=== PATIENT | female | born 1990 | race Caucasian/White ===

== ENCOUNTER 2018-07-26 01:55 | Emergency (ER) | payer OTHER ==
[~2018-07-26] VITALS: Ht 165.1 cm; Wt 49.9 kg
--- OUTSIDE RECORDS SUMMARY | ~2018-07-26 | XMS | Clinical Summary ---
Demographics + + + | Address | [address] | | | [place] [address] | + + + | Home Phone | | + + + | Preferred Language | Unknown | + + + | Marital Status | Single | + + + | Baptist Affiliation | Unknown | + + + | Race | Unknown | + + + | Ethnic Group | Unknown | + + + Author + + + | Author | [facility] | | | and [place] | + + + | Organization | [facility] | | | and [place] | + + + | Address | Unknown | + + + | Phone | Unavailable | + + + Support + + +---------+ + | Name | Relationship | Address | Phone | + + +---------+ + | Epifanio Lara | ECON | Unknown | | + + +---------+ + | AllisonRavindra | ECON | Unknown | | + + +---------+ + Care Team Providers + +------+ + | Care Aluminum Siding Mechanic Name | Role | Phone | + +------+ + | Eulalia Valdivia | PP | | | Ynes WELLS | | | + +------+ + Allergies No Known Allergies Current Medications + + +-------+---------+------+------+-------+ | Prescription | Sig. | Disp. | Refills | Star | End | Statu | | | | | | t | Date | s | | | | | | Date | | | + + +-------+---------+------+------+-------+ | | Take 1 tablet by | | | | | Activ | | HYDROcodone-acetamin | mouth every 6 hours | | | | | e | | ophen (NORCO) | as needed for Pain. | | | | | | | 7.5-325 mg per | | | | | | | | tablet | | | | | | | + + +-------+---------+------+------+-------+ Active Problems Not on file Family History + + +------+ + | Medical History | Relation | Name | Comments | + + +------+ + | Arthritis | Other | | Family history | + + +------+ + | Hypertension | Other | | Family history | + + +------+ + + +------+--------+ + | Relation | Name | Status | Comments | + +------+--------+ + | Other | | | | + +------+--------+ + Social History + + + +--------+------+ | Tobacco Use | Types | Packs/Day | Years | Date | | | | | Used | | + + + +--------+------+ | Current Every Day | Cigarettes | 0.05 | | | | Smoker | | | | | + + + +--------+------+ + +---+---+---+ | Smokeless Tobacco: | | | | | Never Used | | | | + +---+---+---+ + + +---------+ + | Alcohol Use | Drinks/We | oz/Week | Comments | | | ek | | | + + +---------+ + | No | 0 | 0.0 | | | | Standard | | | | | drinks or | | | | | | | | | | equivalen | | | | | t | | | + + +---------+ + + + + | Sex Assigned at | Date Recorded | | | | + + + | Not on file | | + + + Plan of Treatment + + + + + | Health Maintenance | Due Date | Last Done | Comments | + + + + + | Vaccine: HPV (1 of 3 | | | | | - Female 3-dose | 2 | | | | series) | | | | + + + + + | Vaccine: | | | | | Dtap/Tdap/Td (1 - | 0 | | | | Tdap) | | | | + + + + + | Vaccine: | | | | | Pneumococcal 19-64 | 0 | | | | (PPSV23 only) Medium | | | | | Risk (1 of 1 - | | | | | PPSV23) | | | | + + + + + | Cervical Cancer | | | | | Screening (Pap) | 2 | | | + + + + + | Vaccine: Influenza | | | | | (#1) | 8 | | | + + + + + Results Not on filefrom Last 3 Months Insurance + +--------+ +--------+ +---------+ | Payer | Benefi | Subscriber | Type | Phone | Address | | | t Plan | ID | | | | | | / | | | | | | | Group | | | | | + +--------+ +--------+ +---------+ | [employer] | [employer] | [id number] | [employer] | [phone] | | MEDICAID HMO | HEALTH | | id | [id number] | | | | [place] | | | | | | | [place] | | | | | + +--------+ +--------+ +---------+ + +--------+ +--------+ + + | Guarantor Name | Accoun | Relation to | Date | Phone | Billing Address | | | t Type | Patient | of | | | | | | | | | | + +--------+ +--------+ + + | YOLIS WHELAN | Person | Self | [birth year] Home: | [address]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
--- OUTSIDE RECORDS SUMMARY | ~2018-07-26 | XMS | Clinical Summary ---
Demographics + + + | Address | [address] | | | [place] [address] | + + + | Home Phone | | + + + | Preferred Language | Unknown | + + + | Marital Status | Single | + + + | Anabaptist Affiliation | Unknown | + + + | Race | Unknown | + + + | Ethnic Group | Unknown | + + + Author + + + | Author | [facility] | | | and [place] | + + + | Organization | [facility] | | | [...] Team Providers + +------+ + | Care Estate And Trust Tax Principal Name | Role | Phone | + [...] | [employer] | MOD[employer] | [id number] | [employer] | [phone] | | MEDICAID HMO | HEALTH [...] [birth year] | Home: | [address]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
[~2018-07-26 01:55] MED LIST: EXCEDRIN EXTRA1 EAC1 PO; FIORINAL-COD 31 EACH PO; ZOFRAN ODT4 MG PO
--- OUTSIDE RECORDS SUMMARY | 2018-07-26 02:00 | XMS ---
PreManage Notification: YOLIS WHELAN Security Events No recent Security Events currently on file CRITERIA MET - [facility] - 2 Visits in 30 Days CARE PROVIDERS АННА VALDIVIA Student in an Organized Health Care 07/25/2018-Current [facility] Education/Training Program PHONE: [phone] Анна Valdivia Treatment [facility] PHONE: Unknown Ana has no Care Guidelines for this patient. EJesus VISIT COUNT (12 MO.) [address] [place] [address] TOTAL 3 NOTE: Visits indicate total known visits. ED/UCC VISIT TRACKING (12 MO.) 07/26/2018 01:55 [facility] TYPE: Emergency COMPLAINT: - HEADACHE 07/24/2018 06:51 [facility] TYPE: Emergency COMPLAINT: - HEADACHE 07/23/2018 19:25 [facility] TYPE: Emergency COMPLAINT: - HEADACHE INPATIENT VISIT TRACKING (12 MO.) No inpatient visits to display in this time frame [id number]
== END 2018-07-26 03:42 | disposition home or self-care (01) ==
LOC: ED 01:55
PROC: 009U3ZX Drainage of Spinal Canal, Percutaneous Approach, Diagnostic (ICD-10-PCS; principal; 2018-07-26)
DX: R51 Headache (principal); F17.200 Nicotine dependence, unspecified, uncomplicated
CPT/HCPCS: 62270; 82945; 84157; 85032; 89051; 96374; 96375; 99284; J1200; J1885; J2765; J7030

== ENCOUNTER 2025-06-04 06:00 | Day surgery (SDC) | payer OTHER ==
[~2025-06-04] VITALS: Ht 165.1 cm; Wt 48.0 kg
[~2025-06-04 06:00] MED LIST changes: +LACTATED RINGER'S 1,000 ML IV SCH; +TRILEPTAL300 MG PO
[2025-06-04 06:11] VITALS: BP 125/78
[2025-06-04] MEDS ORDERED: IBLOOD GLUCOSE TEST STRIP 1 EA TEST VI PRN (07:00)
[2025-06-04] MEDS ORDERED: LIDOCAINE HCL 1% 5 ML SDV INJ ONE (07:00)
[2025-06-04] MEDS ORDERED: fentaNYL citrate 100 MCG/2 ML VIAL ONE (07:04)
[2025-06-04] MEDS ORDERED: KETOROLAC TROMETHAMINE 30 MG/ML VIAL ONE (07:04)
[2025-06-04] MEDS ORDERED: MIDAZOLAM HCL 2 MG/2 ML VIAL ONE (07:04)
[2025-06-04] MEDS ORDERED: LIDOCAINE HCL 2% 5 ML SDV ONE (07:05)
[2025-06-04] MEDS ORDERED: ACETAMINOPHEN 1,000 MG/100 ML VIAL ONE (07:27)
[2025-06-04] MEDS ORDERED: LACTATED RINGER'S 1,000 ML IV ONE (08:29)
[2025-06-04] MEDS ORDERED: PROCHLORPERAZINE EDISYLATE 10 MG/2 ML VIAL IV PRN (08:45)
[2025-06-04] MEDS ORDERED: OXYCODONE/APAP 5/325 TAB PO PRN (08:45)
[2025-06-04] MEDS ORDERED: MORPHINE SULFATE 10 MG/ML VIAL IV PRN (08:45)
[2025-06-04] MEDS ORDERED: MAGNESIUM HYDROXIDE/AL HYDROX 30 ML CUP PO PRN (08:45)
[2025-06-04] MEDS ORDERED: NALOXONE HCL 0.4 MG SYR IV PRN (08:45)
[2025-06-04] MEDS ORDERED: SIMETHICONE 80 MG CHEW PO PRN (08:45)
[2025-06-04] MEDS ORDERED: FAMOTIDINE 20 MG/ 2 ML VIAL IV PRN (08:45)
--- NOTE | 2025-06-04 08:53 | NUR ---
06/04/25 0853 Yomaira Gamez PATIENT WAKES SUDDENLY. SHE FOLLOWS INSTRUCTIONS TO OPEN HER MOUTH. ORAL AIRWAY IS REMOVED. OXYGEN IS DISCONTINUED. SURGICAL BONNET IS REMOVED.
[2025-06-04] MEDS ORDERED: SIMETHICONE 80 MG CHEW PO SCH (09:00)
[2025-06-04 09:07] VITALS: BP 113/78
[2025-06-04] MEDS ORDERED: BENZOCAINE 60 ML AEROSOL TOP PRN (09:15)
[2025-06-04] MEDS ORDERED: WITCH HAZEL/GLYCERIN 1 EA PAD TOP PRN (09:15)
--- NOTE | 2025-06-04 09:21 | NUR ---
0907-PT BACK TO ROOM FROM PACU ON . RECEIVED REPORT FROM JOHN JUAREZ. PT IS AWAKE. RESP EVEN AND UNLABORED. DENIES PAIN AND NAUSEA. PT DRINKING WATER AND EATING APPLESAUCE. NO OTHER NEEDS AT THIS TIME. FRIEND IN ROOM. CALL LIGHT WITHIN REACH.
[2025-06-04 10:08] VITALS: BP 125/81
--- NOTE | 2025-06-04 12:46 | NUR ---
LE 0958-PT AMBULATES TO RESTROOM. GAIT STEADY AND TOLERATED WELL. PT VOIDS 400ML OF YELLOW URINE. LE 1003-PT BACK TO BED. LE 1008-PT LAYING IN BED. RESP EVEN AND UNLABORED. DENIES PAIN AND NAUSEA. PT READY TO GO HOME. LE 1012-PT WILL GET DRESSED. CALL LIGHT WITHIN REACH.
--- NOTE | 2025-06-04 12:51 | NUR ---
LE 1020-WENT OVER DISCHARGE INSTRUCTIONS WITH PT. ALL QUESTIONS ANSWERED. LE 1022-PT AMBULATES TO WHEELCHAIR AND RIDE PROVIDED TO FRONT OF HOSPITAL WHERE RIDE WAS WAITING WITH THE CAR.
[2025-06-04] MEDS ORDERED: SEVOFLURANE 250 ML BTL INH ONE (16:09)
--- NOTE | 2025-06-06 04:43 | OR ---
[facility] [address] [place] [address] Signed DATE OF OPERATION: 06/04/2025 SURGEON: Carie Duncan DO PREOPERATIVE DIAGNOSES: 1. Bilateral labial hypertrophy. 2. Redundant perineal skin. 3. Vulvar inclusion cyst. 4. Dyspareunia. POSTOPERATIVE DIAGNOSES: 1. Bilateral labial hypertrophy. 2. Redundant perineal skin. 3. Vulvar inclusion cyst. 4. Dyspareunia. PROCEDURES PERFORMED: 1. Bilateral labiaplasty. 2. Perineorrhaphy. 3. Excision of vulvar cyst. ANESTHESIA: General. ESTIMATED BLOOD LOSS: 5 mL. SPECIMEN: Vulvar inclusion cyst. DRAINS: None. FINDINGS: Normal clitoris, urethral meatus, bilateral [place]'s, Bartholin's glands. Significant bilateral labial hypertrophy of the labia minora, approximately 7 cm in length bilaterally with significant redundancy of the fourchette/perineum. Small inclusion cyst of the vulva, left and superior to the clitoris. Hemostatic at the end of the procedure. Electronically Signed By: CARIE DUNCAN DO (JD) 06/06/25 0443 PATIENT NAME: YOLIS CHAN OPERATIVE REPORT DATE OF : [birth year] REPORT #: [id number] PHYSICIAN: CARIE DUNCAN DO (JD) PCP: АННА BLUM PA-C REPORT IS CONFIDENTIAL AND NOT TO BE RELEASED WITHOUT AUTHORIZATION [facility] [address] [place], [place] [address] Signed COMPLICATIONS: None. INDICATIONS: Ms. Chan is a very pleasant 34-year-old female with a long history of symptomatic labia hypertrophy. She reports pain with exercise, clothing, and with intimacy. She reports that her labia will become exposed with bathing suits, etc. She also has a symptomatic left vulvar inclusion cyst. The patient requests bilateral labiaplasty with perineorrhaphy to correct her dyspareunia. Risks, benefits, and alternatives were discussed in detail with the patient. The patient understands and wished to proceed with the procedures. TECHNIQUE: The patient was taken to the OR. A time-out was performed to confirm correct patient and correct procedure. General anesthesia was adequately established. The patient was prepped and draped in dorsal lithotomy position with feet in Yellofin stirrups. ICPs were on and running. No preoperative antibiotics or heparin were indicated. The bladder was drained. The labia were closely examined and marked to trim excess hypertrophic tissue. Needlepoint cautery was used to excise the excess labial skin on the right labia minora with excellent hemostasis appreciated. The incision was then repaired with many sutures of interrupted 3-0 Vicryl Rapide with excellent hemostasis appreciated. The process was repeated on the left side ensuring symmetry in a physiologic appearance of the labia minora. The incision was again closed with many sutures of 3-0 Vicryl Rapide with excellent hemostasis. No evidence of hematoma or other concerns. Attention was then turned to perineorrhaphy. The perineum was infiltrated with 0.25% Marcaine with epinephrine and an inverted triangle incision of the fourchette and superior aspect of the perineal skin was performed and excised. This was then repaired in a standard fashion using 2-0 Vicryl for deep layer and 3-0 Vicryl Rapide for the skin. Excellent hemostasis and cosmesis was appreciated. Attention was then turned to excision of the vulvar cyst. The skin overlying this was infiltrated with 0.25% Marcaine with epinephrine and a small vertical skin incision was made approximately 3-4 mm in length. The cyst was identified, draining yellow cheese-like material. The cyst was excised with Adson's and Metzenbaum scissors. This was made hemostatic with Bovie electrocautery. Vulva was then repaired in three layers with 3-0 Vicryl Rapide and 4-0 Vicryl. The patient was then taken to PACU in good and stable condition. Sponge, needle and instrument counts were correct x2 at the end of the procedure. Electronically Signed By: CARIE DUNCAN DO (JD) 06/06/25 0443 PATIENT NAME: YOLIS CHAN OPERATIVE REPORT DATE OF : [birth year] REPORT #: [id number] PHYSICIAN: CARIE DUNCAN DO (JD) PCP: АННА BLUM PA-C REPORT IS CONFIDENTIAL AND NOT TO BE RELEASED WITHOUT AUTHORIZATION [address] [place], [place] [address] Signed Carie Duncan DO JDENISE/ANURADHA /[id number] Copies: ~ Electronically Signed By: CARIE COTO) DO RICK 06/06/25 0443 PATIENT NAME: YOLIS CHAN OPERATIVE REPORT DATE OF : [birth year] REPORT #: [id number] PHYSICIAN: CARIE DUNCAN DO (JD) PCP: АННА BLUM PA-C REPORT IS CONFIDENTIAL AND NOT TO BE RELEASED WITHOUT AUTHORIZATION
--- NOTE | 2025-06-06 16:51 | PATH ---
[facility] [address] [place] [place] [address] Signed SPECIMEN(S): A LEFT LABIA VULVAR CYST SPECIMEN SOURCE: A. LEFT LABIA VULVAR CYST CLINICAL HISTORY: Cyst, left labia, labioplasty FINAL PATHOLOGIC DIAGNOSIS: Left labia vulvar cyst: - Skin and underlying tissue with features consistent with inclusion cyst and associated exuberant chronic and acute inflammation. - PAS fungal stain is negative for organisms (valid control). - Negative for dysplasia or malignancy. NA MICROSCOPIC EXAMINATION: Histologic sections of all submitted blocks are examined by light microscopy. These findings, together with the gross examination, support the pathologic diagnosis. GROSS DESCRIPTION: The specimen, labeled and designated "[place], left labia vulvar cyst," is received in formalin and consists of a pink-tucker piece of skin (0.9 x 0.2 cm with an excised depth of 0.6 cm). The resection margin is inked blue, and trisected to reveal tucker soft and slightly friable cut surfaces. The specimen is submitted entirely in cassette (A1). VB (under the direct supervision of a pathologist) The Gross Description was prepared using a voice recognition system. The report was reviewed for accuracy; however, sound-alike word errors, addition and/or deletions may occur. If there is any question about this report, please contact Client Services. ADDITIONAL NOTES: Immunohistochemical and/or in situ hybridization studies if performed in this case included appropriate positive controls that reacted as expected. This test was developed and its performance characteristics determined by [facility]. It has not been cleared or approved by the U.S. Food and Drug Administration. The FDA has determined that such clearance or approval is not necessary. This test is used for clinical purposes. It should not be regarded PATIENT NAME: YOLIS CHAN PATHOLOGY DATE OF : [birth year] REPORT #: [id number] PHYSICIAN: RAMON WINCHESTER PCP: АННА BLUM PA-C REPORT IS CONFIDENTIAL AND NOT TO BE RELEASED WITHOUT AUTHORIZATION [facility] [address] [place] [place] [address] Signed as investigational or for research. [facility] is certified under the Clinical Laboratory Improvement Amendments of 1988 (CLIA) as qualified to perform high complexity clinical laboratory testing. PERFORMING LABORATORY: Technical component was performed by [facility], [address] [place] [address] (CLIA# [id number]). Professional interpretation was performed by [facility] - [facility], [address] [place] [address] (CLIA#: [id number]). Diagnostician: Thierno Ch MD Pathologist Electronically Signed 06/06/2025 Copies: ~ PATIENT NAME: YOLIS CHAN PATHOLOGY DATE OF : [birth year] REPORT #: [id number] PHYSICIAN: RAMON PATHOLOGY PCP: НАНА BLUM PA-C REPORT IS CONFIDENTIAL AND NOT TO BE RELEASED WITHOUT AUTHORIZATION
== END 2025-06-04 10:22 | disposition home or self-care (01) ==
LOC: DS 06:00
PROVIDERS: ATTEND Obstetrics & Gynecology
PROC: 0UBMXZZ Excision of Vulva, External Approach (ICD-10-PCS; principal; 2025-06-04 07:30)
DX: N76.2 Acute vulvitis (principal); N90.7 Vulvar cyst; N94.10 Unspecified dyspareunia; F17.290 Nicotine dependence, other tobacco product, uncomplicated; Z79.899 Other long term (current) drug therapy
CPT/HCPCS: 00400; 88304; 88312; J0131; J1885; J2003; J2250; J2405; J2704; J3010; J7121